=== PATIENT | male | born 1955 | race Caucasian/White ===

== ENCOUNTER 2017-04-13 12:34 | Inpatient (IN) | payer MEDICARE ==
[2017-04-13] VITALS (7 sets, daily range): BP systolic 125–166; BP diastolic 76–92
[~2017-04-13] VITALS: Ht 185.4 cm; Wt 96.3 kg
--- NOTE | ~2017-04-13 | ST ---
[place], [place] EXERCISE STRESS TEST REPORT NAME: DANK MCDONNELL UNIT #: [id number] ROOM: 511 DOCTOR: PEREZ LANE MD BIRTHDATE: [birth year] DOS: 04/14/2017 EXERCISE NUCLEAR STRESS TEST INDICATIONS: Precordial chest pain, history of coronary artery disease with previous bypass surgery. PROCEDURE: The patient walked on a full Killian protocol for 7 minutes 35 seconds and achieved a maximum heart rate of 147, which represented 93% of his maximum predicted heart at a workload of 10 mets. His resting heart rate of 74 ezra to 147. The resting blood pressure 128/70, ezra to 200/58. He did not recreate his chest pain with exercise. He did develop up to 1.5 mm of flat to downsloping ST segment depression in the inferior and lateral leads. EKG changes persisted over 5 minutes in the recovery. One minute prior to completion of exercise protocol, the patient was given radionuclide intravenously. IMPRESSION: 1. Good exercise capacity without chest pain. 2. Abnormal EKG changes with ST segment depression in the inferior and lateral leads. The Bella treadmill score was 0 consistent with an intermediate risk of future cardiac events. 3. Radionuclide injected. Please see the separate imaging report for further details of the patient's stress test results. PEREZ LANE MD CM:STRESS:EXERCISE STRESS TEST REPORT [id number] MD
[~2017-04-13 12:34] MED LIST: ASPIRIN81 M1 PO; COLACE100 MG PO; FISH OIL500 M1 PO; KEFLEX500 MG PO; LIPITOR40 MG PO; LISINOPRIL10 M1 PO; LISINOPRIL10 MG PO; LISINOPRIL20 MG PO; LOVASTATIN20 MG PO; Lopressor25 MG PO; METFORMIN ER500 MG PO; METFORMIN500 MG PO; NAPROSYN500 MG PO; PLAVIX75 MG PO; VICO75300 PO; VICODIN ES 7501 TAB PO; [UNRECOGNIZED DRUG - REMARK]
[2017-04-13 12:57] LABS: BASO % 0.4 % (0.0-1.0); EOS # 0.3 10*3/uL (0.0-0.4); EOS % 4.5 % (1.0-4.0); HEMATOCRIT 44.6 % (42.0-52.0); HEMOGLOBIN 15.4 g/dl (14.0-18.0); LYMPH # 1.8 10*3/uL (1.3-4.4); LYMPH % 25.7 % (27.0-41.0); MEAN CELL VOLUME 85.3 fl (80.0-94.0); MEAN CORPUSCULAR HGB 29.4 pg (27.0-31.0); MEAN CORPUSCULAR HGB CONC 34.5 g/dl (33.0-37.0); MEAN PLATELET VOLUME 9.9 fl (9.6-12.3); MONO # 0.5 10*3/uL (0.1-1.0); MONO % 7.3 % (3.0-9.0); NEUT # 4.4 10*3/uL (2.3-7.9); PLATELET COUNT AUTOMATED 253 10*3/uL (130-400); RED BLOOD COUNT 5.23 10*6/uL (4.50-5.90); RED CELL DISTRI WIDTH 13.1 % (0-14.5); WHITE BLOOD COUNT 7.1 10*3/uL (4.8-10.8)
[2017-04-13 13:14] LABS: ALBUMIN 3.7 gm/dl (3.1-4.5); ALKALINE PHOSPHATASE 85 U/L (45-117); BUN 17 mg/dl (7-24); CHLORIDE 103 mmol/L (98-107); CREATININE 1.27 mg/dL (0.70-1.30); MAGNESIUM 1.7 mg/dL (1.5-2.1); POTASSIUM 3.8 mmol/L (3.5-5.1); SGOT/AST 18 IU/L (3-35); SGPT/ALT 39 U/L (12-78); SODIUM 137 mmol/L (136-145); TOTAL PROTEIN 7.8 gm/dL (6.4-8.2)
[2017-04-13 13:16] LABS: TROPONIN I < 0.015 ng/ml (<0.045)
--- NOTE | 2017-04-13 13:19 | NUR ---
PATIENT IS ALERT AND ORIETNED X3, SKIN IS PINK, WARM, AND DRY, RESPIRATIONS ARE EASY AND NONLABORED, PATIENT IS RESTING IN BED WITH FAMILY PRESENT IN THE ROOM, CALL LIGHT IN REACH OF THE PATIENT, CONTINUING TO MONITOR THE PATIENT. CHRIS JONES
[2017-04-13 13:23] LABS: ACT PARTIAL THROMBO TIME 22.5 SECONDS (20.8-31.5)
[2017-04-13] MEDS ORDERED: GLIPIZIDE10 M2 PO (14:07)
--- NOTE | 2017-04-13 14:08 | NUR ---
HOME MEDS VERIFIED WITH EUGENIE AT [facility]
--- NOTE | 2017-04-13 14:14 | NUR ---
PATIENT TAKEN TO THE FLOOR AND PALCED IN ROOM 511-2, PLACED ON THE MONITOR AND CARE TRANSFERRED TO MABLE BRAXTON RN. CHRIS JONES
--- NOTE | 2017-04-13 14:15 | NUR ---
A 61, admitted to , under the services of NILS De Guzman DO with a diagnosis of CHEST PAIN. Chief complaint is CHEST PAIN. Patient arrived via CART WITH RN from ER. Monitor applied. Initial assessment completed. Vital signs taken and recorded. NILS DE GUZMAN DO notified of admission to the unit. Orders received. See assessment for past medical history, medications and allergies. Patient and/or family oriented to unit. [facility] visitation policy reviewed. Clothing/patient valuable form completed. MAGGI BRAXTON
--- NOTE | 2017-04-13 15:08 | NUR ---
A 61, admitted to , under the services of NILS De Guzman DO with a diagnosis of CHEST PAIN. Chief complaint is CHEST PAIN. Patient arrived via OTHER from ER. Monitor applied. Initial assessment completed. Vital signs taken and recorded. NILS DE GUZMAN DO notified of admission to the unit. Orders received. See assessment for past medical history, medications and allergies. Patient and/or family oriented to unit. [facility] visitation policy reviewed. Clothing/patient valuable form completed. MAGGI BRAXTON
--- NOTE | 2017-04-13 15:12 | NUR ---
PT REFUSED FLU SHOT WHEN OFFERED.
--- NOTE | 2017-04-13 17:19 | NUR ---
Patient resting quietly with no c/o discomfort. Respirations easy and regular. Vital signs stable. No overt distress. MAGGI BRAXTON
--- NOTE | 2017-04-13 20:00 | NUR ---
PT AMBULATING TO BR AD NARCISA. PT STATES PAIN IS 1/10 TO LEFT AXILLARY AND DESCRIBES MUSCLE ACHE. DENIES NEED FOR ANY PAIN MEDICATION AT THIS TIME. HRR 70'S. PT ADVISED TO CALL NURSE IF ANY FURTHER/INCREASE IN PAIN. PT AGREEABLE.
--- NOTE | 2017-04-13 22:43 | NUR ---
24 HR chart check completed.
[2017-04-14] VITALS: BP 115/70
[2017-04-14 06:32] LABS: BASO % 0.3 % (0.0-1.0); EOS # 0.3 10*3/uL (0.0-0.4); EOS % 3.7 % (1.0-4.0); HEMATOCRIT 46.9 % (42.0-52.0); HEMOGLOBIN 15.6 g/dl (14.0-18.0); LYMPH # 2.1 10*3/uL (1.3-4.4); LYMPH % 23.7 % (27.0-41.0); MEAN CELL VOLUME 86.1 fl (80.0-94.0); MEAN CORPUSCULAR HGB 28.6 pg (27.0-31.0); MEAN CORPUSCULAR HGB CONC 33.3 g/dl (33.0-37.0); MEAN PLATELET VOLUME 10.2 fl (9.6-12.3); MONO # 0.7 10*3/uL (0.1-1.0); MONO % 7.6 % (3.0-9.0); NEUT # 5.6 10*3/uL (2.3-7.9); NEUT % 64.4 % (47.0-73.0); PLATELET COUNT AUTOMATED 264 10*3/uL (130-400); RED BLOOD COUNT 5.45 10*6/uL (4.50-5.90); RED CELL DISTRI WIDTH 13.2 % (0-14.5); WHITE BLOOD COUNT 8.6 10*3/uL (4.8-10.8)
[2017-04-14 07:06] LABS: ALBUMIN 3.9 gm/dl (3.1-4.5); ALKALINE PHOSPHATASE 81 U/L (45-117); BUN 17 mg/dl (7-24); CHLORIDE 101 mmol/L (98-107); CHOLESTEROL 149 mg/dL (<200); CREATININE 1.24 mg/dL (0.70-1.30); FREE T4 1.11 ng/dl (0.76-1.46); HDL CHOLESTEROL 35 mg/dl (40-60); LDL CHOLESTEROL 67 mg/dL (9-159); MAGNESIUM 1.6 mg/dL (1.5-2.1); PHOSPHOROUS 3.2 mg/dL (2.5-4.9); SGOT/AST 19 IU/L (3-35); SGPT/ALT 41 U/L (12-78); SODIUM 137 mmol/L (136-145); TOTAL PROTEIN 8.1 gm/dL (6.4-8.2); TRIGLYCERIDES 233 mg/dl (<150); VLDL CHOLESTEROL 47 mg/dL (6-40)
[2017-04-14 08:00] VITALS: BP 137/88
--- NOTE | 2017-04-14 08:42 | NUR ---
PT OFF FLOOR VIA TRANSPORT FOR STRESS TEST.
--- NOTE | 2017-04-14 09:00 | NUR ---
case management attempted to visit with patient, patient out of room for testing
--- NOTE | 2017-04-14 10:25 | NUR ---
INFORMED SIGNED CONSENT OBTAINED FOR CGXT WITH DR LANE. RESTING EKG NSR HR 74 BP 128/70 IN SUPINE POSITION, STANDING HR 72 BP 130/84. PT COMPLETED 7:35 OF A JENELLE PROTOCOL WITH PT COMPLETING 1:35 OF STAGE III AT 3.4 MPHE AND A 14% GRADE. PT REAHCED A PEAK HR OF 147 WHICH REPRESENTS 93% OF PREDICTED MAXIMUM AND PEAK BP OF 170/82. NO ARRHTHMIAS NOTED. NON DIAGNOSTIC ST CHANGES. PT IN STABLE CONDITION, AWAITING NUCLEAR IMAGES. LAST RECOVERY HR OF 99 BP 148/80.
[2017-04-14 11:00] VITALS: BP 150/89
--- NOTE | 2017-04-14 11:01 | NUR ---
PT RETURNED FROM STRESS TEST. PT STABLE AT THIS TIME. RESPS EASY ON RA. ASSESSMENT UNCHANGED FROM PREVIOUS. CALL LIGHT IN REACH.
[2017-04-14 12:00] VITALS: BP 150/89
[2017-04-14 16:00] VITALS: BP 116/79
[2017-04-14] MEDS ORDERED: IMDUR SA30 MG PO (16:46)
--- NOTE | 2017-04-14 17:50 | NUR ---
Discharge instructions reviewed with patient/family. Patient receptive and verbalizes understanding. Follow-up care arranged. Written instructions given to patient/family.HEPLOCK REMOVED AND TELEMETRY ACCOUNTED FOR. MAGGI BRAXTON
== END 2017-04-14 17:50 | disposition home or self-care (01) | DRG 392 ==
LOC: ED 12:34 → 5E 13:43 → EDHOLD 13:43 → 5E 04-14 17:50
PROVIDERS: Emergency Medicine; Family Medicine; ADMIT Internal Medicine
PROC: 4A02XM4 Measurement of Cardiac Total Activity, External Approach (ICD-10-PCS; principal; 2017-04-14)
DX: K21.9 Gastro-esophageal reflux disease without esophagitis (principal); E11.65 Type 2 diabetes mellitus with hyperglycemia; I10 Essential (primary) hypertension; I25.718 Atherosclerosis of autologous vein coronary artery bypass graft(s) with other forms of angina pectoris; R07.89 Other chest pain; E78.5 Hyperlipidemia, unspecified; Z79.82 Long term (current) use of aspirin; Z79.899 Other long term (current) drug therapy; Z95.1 Presence of aortocoronary bypass graft; Z72.89 Other problems related to lifestyle; Z82.49 Family history of ischemic heart disease and other diseases of the circulatory system; Z79.84 Long term (current) use of oral hypoglycemic drugs

== ENCOUNTER 2019-08-13 12:43 | Inpatient (IN) | payer MEDICARE ==
[~2019-08-13] VITALS: Ht 182.8 cm; Wt 98.0 kg
[2019-08-13] VITALS (9 sets, daily range): BP systolic 107–166; BP diastolic 69–94
[~2019-08-13 12:43] MED LIST changes: +GLIPIZIDE10 M2 PO; +IMDUR SA30 MG PO
[2019-08-13 13:34] LABS: BASO % 0.4 % (0.0-1.0); EOS # 0.4 10*3/uL (0.0-0.4); EOS % 7.1 % (1.0-4.0); HEMATOCRIT 45.1 % (42.0-52.0); HEMOGLOBIN 15.3 g/dl (14.0-18.0); LYMPH # 1.3 10*3/uL (1.3-4.4); LYMPH % 26.1 % (27.0-41.0); MEAN CELL VOLUME 87.1 fl (80.0-94.0); MEAN CORPUSCULAR HGB 29.5 pg (27.0-31.0); MEAN CORPUSCULAR HGB CONC 33.9 g/dl (33.0-37.0); MEAN PLATELET VOLUME 10.2 fl (9.6-12.3); MONO # 0.6 10*3/uL (0.1-1.0); MONO % 12.5 % (3.0-9.0); NEUT # 2.7 10*3/uL (2.3-7.9); NEUT % 53.7 % (47.0-73.0); PLATELET COUNT AUTOMATED 219 10*3/uL (130-400); RED BLOOD COUNT 5.18 10*6/uL (4.50-5.90); RED CELL DISTRI WIDTH 13.7 % (0-14.5)
[2019-08-13 13:45] LABS: ACT PARTIAL THROMBO TIME 23.6 SECONDS (20.0-32.1)
[2019-08-13 13:50] LABS: ALBUMIN 3.7 gm/dl (3.1-4.5); ALKALINE PHOSPHATASE 71 U/L (45-117); BUN 17 mg/dl (7-24); CHLORIDE 108 mmol/L (98-107); CREATININE 1.36 mg/dL (0.70-1.30); SGOT/AST 21 IU/L (3-35); SGPT/ALT 37 U/L (12-78); SODIUM 139 mmol/L (136-145); TOTAL PROTEIN 6.7 gm/dL (6.4-8.2)
[2019-08-13 13:52] LABS: TROPONIN I < 0.015 ng/ml (<0.045)
--- NOTE | 2019-08-13 16:02 | NUR ---
Chiara at [facility] cardiology notified of consult for pt. Er called and states pt is coming to floor. Notified of reason for consult and that consult is ordered routine.
[2019-08-13] MEDS ORDERED: ZESTRIL20 MG PO (16:11)
[2019-08-13] MEDS ORDERED: IMDUR SA30 MG PO (16:12)
--- NOTE | 2019-08-13 16:30 | NUR ---
Notified Dr. Dial that pt is here in room and med rec is updated.
--- NOTE | 2019-08-13 17:34 | NUR ---
Dr. Dial notified of troponin result of 0.090.
--- NOTE | 2019-08-13 17:38 | NUR ---
Dr. Ramirez notified of second troponin result.
--- NOTE | 2019-08-13 20:29 | NUR ---
ATTEMPTED TO CONTACT CARDIOLOGY, WAITNING ON A CALL BACK
--- NOTE | 2019-08-13 21:20 | NUR ---
SPOKE WITH DR. WILCOX. STATED TO TREAT THE LEFT ARM PAIN ANGINA AND LONG HIS BP TOLERATES THE NITRO PASTE,USE 1/2INCH. X2 DOSES. ALSO ORDER TROPONIN FOR THE MORNING. DR. BILL MADE AWARE.
--- NOTE | 2019-08-13 22:20 | NUR ---
1/2INCH NITRO PASTE PLACED ON PATIENT LEFT SHOULDER
[2019-08-14] VITALS: BP 128/81
[2019-08-14 06:11] LABS: ALBUMIN 3.2 gm/dl (3.1-4.5); BUN 14 mg/dl (7-24); CHLORIDE 109 mmol/L (98-107); CHOLESTEROL 84 mg/dL (<200); CREATININE 1.19 mg/dL (0.70-1.30); SGOT/AST 22 IU/L (3-35); SGPT/ALT 36 U/L (12-78); SODIUM 140 mmol/L (136-145); TOTAL PROTEIN 6.2 gm/dL (6.4-8.2); TRIGLYCERIDES 109 mg/dl (<150); VLDL CHOLESTEROL 22 mg/dL (6-40)
[2019-08-14 06:14] LABS: BASO % 0.5 % (0.0-1.0); EOS # 0.5 10*3/uL (0.0-0.4); EOS % 7.8 % (1.0-4.0); HEMATOCRIT 41.8 % (42.0-52.0); LYMPH # 1.8 10*3/uL (1.3-4.4); LYMPH % 29.3 % (27.0-41.0); MEAN CELL VOLUME 86.9 fl (80.0-94.0); MEAN CORPUSCULAR HGB 29.1 pg (27.0-31.0); MEAN CORPUSCULAR HGB CONC 33.5 g/dl (33.0-37.0); MEAN PLATELET VOLUME 10.3 fl (9.6-12.3); MONO # 0.6 10*3/uL (0.1-1.0); MONO % 10.4 % (3.0-9.0); NEUT # 3.2 10*3/uL (2.3-7.9); NEUT % 51.8 % (47.0-73.0); PLATELET COUNT AUTOMATED 209 10*3/uL (130-400); RED BLOOD COUNT 4.81 10*6/uL (4.50-5.90); RED CELL DISTRI WIDTH 13.6 % (0-14.5); WHITE BLOOD COUNT 6.1 10*3/uL (4.8-10.8)
[2019-08-14 06:18] LABS: ALKALINE PHOSPHATASE 57 U/L (45-117); FREE T4 1.33 ng/dl (0.76-1.46); HDL CHOLESTEROL 28 mg/dl (40-60); LDL CHOLESTEROL 34 mg/dL (9-159); THYROID STIM HORMONE (HS) 0.739 uIU/ml (0.358-4.75)
--- NOTE | 2019-08-14 07:12 | NUR ---
PATIENTS APTT, 40.7. HEPARIN DRIPPED INCRESED BY 2UNITS. NOW RUNNING 14UNITS OR 13.7ML. APTT NOW ORDERED FOR 1300
[2019-08-14 08:00] VITALS: BP 164/93
--- NOTE | 2019-08-14 10:30 | NUR ---
PHYSICAL THERAPY PT SCREEN COMPLETED TODAY AND PATIENT FOUND TO BE UP AD NARCISA AND (I) IN ROOM AND NO PT SERVICES NEEDED. THANK YOU FOR REFERRAL CAMELIA ROLBES PT
[2019-08-14 12:00] VITALS: BP 132/75
[2019-08-14 16:00] VITALS: BP 148/75
[2019-08-14 20:00] VITALS: BP 139/73
[2019-08-15] VITALS: BP 134/89
[2019-08-15 08:00] VITALS: BP 151/92
[2019-08-15 12:00] VITALS: BP 120/82
[2019-08-15 16:00] VITALS: BP 126/77
[2019-08-15 20:00] VITALS: BP 138/81
[2019-08-16] VITALS: BP 116/63
[2019-08-16 08:00] VITALS: BP 138/90
--- NOTE | 2019-08-16 08:40 | NUR ---
INFORMED CONSENT OBTAINED FOR A LEXISCAN STRESS TEST WITH DR. MCCARTHY. RESTING EKG NSR WITH A HT RT OF 85 AND BP OF 126/80. LUNGS SOUNDS CLEAR MAGALIE, WITH A SPO2 OF 100% VIA RA. COMPLETED ONE MINUTE OF A LEXISCAN PROTOCOL RECEIVING LEXISCAN 0.4 MG OVER 10 SECONDS. C/O A "WARM FEELING" AND ABDOMINAL CRAMPING THAT WAS RELIEVED IN RECOVERY. HAD A PEAK HT RT OF 115, WITH A BP OF 130/68. LAST RECOVERY HT RT OF 110, WITH A BP OF 128/74. AWAITING NUCLEAR IMAGING IN STABLE CONDTION.
--- NOTE | 2019-08-16 09:00 | NUR ---
Customer Service Security Officer in to see patient. He is currently no tin his room. He is having a stress done in cardiac rehab. Will follow up at a later time.
[2019-08-16 12:00] VITALS: BP 138/83
--- NOTE | 2019-08-16 12:27 | NUR ---
Rural Electrification Engineer in to talk to patient. Patient states lives at home with his . There are 4-5 steps in the home. Physician: Dr. Herbie Dean [facility] Home health services: none Patient's level of ADLs: INDEPENDENT Patient has working utilities: yes DME: none Follow-up physician's appointment after d/c: will be made by the hospitalist nurse director upon discharge Does patient want to access PORTAL?: no Discharge plan discussed with patient. He lives at home with his . He is independent in his ADLs and ambulation. Discussed home health care services and he denies any home needs at this time. When medically stable he will be discharged to home. He states his will provide transportation on discharge. ZENY ZAMORA
--- NOTE | 2019-08-16 14:38 | NUR ---
PT TO BE TRANSFERRED TO [facility] FOR CARDIAC CATH, NURSE TO NURSE CALLED TO CEDRIC IN THE OUTSOLE CEMENTER MACHINE, PT HAS TO BE THERE BY 0730 08/17/2019
[2019-08-16 16:00] VITALS: BP 103/69
[2019-08-16 20:00] VITALS: BP 117/64
--- NOTE | 2019-08-16 20:00 | NUR ---
RESTING IN BED VISITING. HEPARIN GTT INFUSING ORDERED THROUGH RIGHT ARM WITHOUT DIFFICULTY. PT. INFORMED OF NPO STATUS AT MIDNIGHT FOR HEART CATHERIZATION IN THE MORNING. PT. VERBALIZED UNDERSTANDING. CALL LIGHT WITHIN REACH; VOICES NO C/O PAIN OR DISCOMFORT.
[2019-08-17] VITALS: BP 118/78
--- NOTE | 2019-08-17 | NUR ---
RESTING IN BED WITH EYES CLOSED. HEPARIN GTT INFUSING WITHOUT DIFFICULTY; SITE ASYMPTOMATIC. RESPIRATIONS EASY ON ROOM AIR. CALL LIGHT WITHIN REACH.
--- NOTE | 2019-08-17 02:00 | NUR ---
RESTING IN BED WITH EYES CLOSED; HEPARIN INFUSING. NO DISTRESS NOTED; CALL LIGHT WITHIN REACH.
--- NOTE | 2019-08-17 05:35 | NUR ---
LEFT VIA [place]. STABLE.
== END 2019-08-17 05:47 | disposition short-term general hospital (02) | DRG 280 ==
LOC: ED 12:43 → 4E 14:40 → EDHOLD 14:40 → 4E 15:02
PROVIDERS: Family Medicine; Internal Medicine; ADMIT Emergency Medicine
PROC: 3E073KZ Introduction of Other Diagnostic Substance into Coronary Artery, Percutaneous Approach (ICD-10-PCS; principal; 2019-08-16)
PROC: 4A02XM4 Measurement of Cardiac Total Activity, External Approach (ICD-10-PCS; principal; 2019-08-16)
DX: I21.4 Non-ST elevation (NSTEMI) myocardial infarction (principal); N17.0 Acute kidney failure with tubular necrosis; E44.0 Moderate protein-calorie malnutrition; I10 Essential (primary) hypertension; I25.10 Atherosclerotic heart disease of native coronary artery without angina pectoris; E78.5 Hyperlipidemia, unspecified; K21.9 Gastro-esophageal reflux disease without esophagitis; M79.602 Pain in left arm; D72.821 Monocytosis (symptomatic); E11.65 Type 2 diabetes mellitus with hyperglycemia; E66.9 Obesity, unspecified; M54.31 Sciatica, right side; Z68.29 Body mass index [BMI] 29.0-29.9, adult; Z95.1 Presence of aortocoronary bypass graft; Z82.49 Family history of ischemic heart disease and other diseases of the circulatory system; Z79.82 Long term (current) use of aspirin; Z79.899 Other long term (current) drug therapy

== ENCOUNTER 2019-11-25 15:54 | Emergency (ER) | payer MEDICARE ==
[~2019-11-25] VITALS: Ht 182.8 cm; Wt 90.7 kg
[~2019-11-25 15:54] MED LIST changes: +ZESTRIL20 MG PO
[2019-11-25 16:56] LABS: BASO % 0.3 % (0.0-1.0); EOS # 0.3 10*3/uL (0.0-0.4); EOS % 3.3 % (1.0-4.0); HEMATOCRIT 41.4 % (42.0-52.0); LYMPH # 1.3 10*3/uL (1.3-4.4); LYMPH % 14.3 % (27.0-41.0); MEAN CORPUSCULAR HGB 29.8 pg (27.0-31.0); MEAN CORPUSCULAR HGB CONC 34.3 g/dl (33.0-37.0); MEAN PLATELET VOLUME 9.8 fl (9.6-12.3); MONO # 0.7 10*3/uL (0.1-1.0); MONO % 7.7 % (3.0-9.0); NEUT # 6.5 10*3/uL (2.3-7.9); NEUT % 74.2 % (47.0-73.0); PLATELET COUNT AUTOMATED 256 10*3/uL (130-400); RED BLOOD COUNT 4.76 10*6/uL (4.50-5.90); RED CELL DISTRI WIDTH 13.3 % (0-14.5); WHITE BLOOD COUNT 8.8 10*3/uL (4.8-10.8)
[2019-11-25 17:10] LABS: ALBUMIN 4.3 gm/dl (3.1-4.5); ALKALINE PHOSPHATASE 79 U/L (45-117); BUN 20 mg/dl (7-24); CHLORIDE 105 mmol/L (98-107); POTASSIUM 4.3 mmol/L (3.5-5.1); SGOT/AST 21 IU/L (3-35); SGPT/ALT 30 U/L (12-78); SODIUM 138 mmol/L (136-145); TOTAL PROTEIN 7.6 gm/dL (6.4-8.2)
[2019-11-25 17:20] LABS: INTERNATIONAL NORM RATIO 1.1 (2.0-3.5)
== END 2019-11-25 18:56 | disposition short-term general hospital (02) ==
LOC: ED 15:54
PROVIDERS: Nurse Practitioner Family
DX: I74.3 Embolism and thrombosis of arteries of the lower extremities (principal); E11.9 Type 2 diabetes mellitus without complications; I10 Essential (primary) hypertension; E78.5 Hyperlipidemia, unspecified; I25.2 Old myocardial infarction; Z79.899 Other long term (current) drug therapy; Z79.82 Long term (current) use of aspirin

== ENCOUNTER 2019-12-21 15:22 | Inpatient (IN) | payer MEDICARE ==
[~2019-12-21] VITALS: Ht 182.8 cm; Wt 87.6 kg
[2019-12-21 15:24] VITALS: BP 95/56
[2019-12-21 16:12] LABS: BASO % 0.1 % (0.0-1.0); EOS % 0.4 % (1.0-4.0); HEMATOCRIT 37.2 % (42.0-52.0); LYMPH # 1.2 10*3/uL (1.3-4.4); LYMPH % 12.1 % (27.0-41.0); MEAN CELL VOLUME 87.9 fl (80.0-94.0); MEAN CORPUSCULAR HGB 29.1 pg (27.0-31.0); MEAN CORPUSCULAR HGB CONC 33.1 g/dl (33.0-37.0); MEAN PLATELET VOLUME 9.3 fl (9.6-12.3); MONO # 0.7 10*3/uL (0.1-1.0); MONO % 6.7 % (3.0-9.0); NEUT # 7.8 10*3/uL (2.3-7.9); NEUT % 80.4 % (47.0-73.0); PLATELET COUNT AUTOMATED 421 10*3/uL (130-400); RED BLOOD COUNT 4.23 10*6/uL (4.50-5.90); RED CELL DISTRI WIDTH 13.3 % (0-14.5); WHITE BLOOD COUNT 9.7 10*3/uL (4.8-10.8)
[2019-12-21 16:22] LABS: ACT PARTIAL THROMBO TIME 30.1 SECONDS (20.0-32.1); INTERNATIONAL NORM RATIO 1.1 (2.0-3.5)
[2019-12-21 16:27] LABS: ALBUMIN 3.5 gm/dl (3.1-4.5); ALKALINE PHOSPHATASE 90 U/L (45-117); BUN 75 mg/dl (7-24); CHLORIDE 104 mmol/L (98-107); CREATININE 2.79 mg/dL (0.70-1.30); LIPASE 144 U/L (73-393); POTASSIUM 5.5 mmol/L (3.5-5.1); SGOT/AST 14 IU/L (3-35); SGPT/ALT 39 U/L (12-78); SODIUM 130 mmol/L (136-145); TOTAL PROTEIN 8.1 gm/dL (6.4-8.2)
[2019-12-21 16:28] LABS: TROPONIN I < 0.015 ng/ml (<0.045)
[2019-12-21 17:47] VITALS: BP 91/55
[2019-12-21 18:20] VITALS: BP 103/59
--- NOTE | 2019-12-21 18:20 | NUR ---
A 64, admitted to , under the services of JILL Nieves DO with a diagnosis of ARF HYPOTENSION DEHYDRATION. Chief complaint is PAIN. Patient arrived via stretcher from ER. Monitor applied. Initial assessment completed. Vital signs taken and recorded. JILL NIEVES DO notified of admission to the unit. Orders received. See assessment for past medical history, medications and allergies. Patient and/or family oriented to unit. [facility]. Clothing/patient valuable form completed. LEFT FOOT WOUNDS WERE MEASURED AND PICTURE WAS TAKEN. 5 TOTAL WOUNDS, LEFT FOOT IS TENDER TO TOUCH. PT ALERT AND ORIENTED. TERRIE URENA
[2019-12-21] MEDS ORDERED: PLAVIX75 M1 PO (19:53)
[2019-12-21] MEDS ORDERED: Lovenox80 MG/0.8 SC (19:53)
[2019-12-21] MEDS ORDERED: GLUCOPHAGE1000 MG PO (19:54)
--- NOTE | 2019-12-21 19:54 | NUR ---
CALLED PT'S TO VERIFY HIS HOME MEDICATIONS.
[2019-12-21] MEDS ORDERED: Percocet 325 MG1 TAB PO (19:56)
--- NOTE | 2019-12-21 19:57 | NUR ---
CALLED DR. PULIDO AND NOTIFIED HER THAT PT'S MED REQ WAS UP TO DATE AND VERIFIED WITH HIS .
--- NOTE | 2019-12-21 19:59 | NUR ---
CALLED DR. VALENTINE AND SPOKE WITH THE PODIATRY RESIDENT. PER PODIATRY RESIDENT SHE ALREADY GOT TO SEE THE PATIENT IN THE ER. CONSULT COMPLETED.
[2019-12-21 20:00] VITALS: BP 104/63
[2019-12-22] VITALS: BP 105/55
[2019-12-22 01:46] LABS: BILIRUBIN NEGATIVE (NEGATIVE); BLOOD NEGATIVE (NEGATIVE); CLARITY SL CLOUDY (CLEAR); COLOR YELLOW (YELLOW); GLUCOSE NEGATIVE (NEGATIVE); KETONE NEGATIVE (NEGATIVE); NITRITE NEGATIVE (NEGATIVE); SPECIFIC GRAVITY 1.025 (1.005-1.030); UROBILINOGEN 0.2 E.U./dl (0.2-1.0)
[2019-12-22 01:47] LABS: LEUKO ESTERASE NEGATIVE (NEGATIVE)
[2019-12-22 02:04] LABS: URIC ACID CRYSTALS 1+
[2019-12-22 02:05] LABS: BACTERIA TRACE; WBC 0-2 wbc/hpf (0-5)
--- NOTE | 2019-12-22 06:11 | NUR ---
DANK MCDONNELL [id number] Please refer to the physician's history and physical for past medical history, comorbid conditions, and allergies. Diagnosis: ARF HYPOTENSION DEHYDRATION Uriel Score: 20,LOW OR NO RISK WOUND DESCRIPTIONS: Wound Number: 1 Location of the wound: left 2nd toe Thickness: Full Size: 4.5cm x 5.5cm x <0.1cm Tunneling: none Undermining: none Sinus Tract: none Presence of Exudate: none Amount: None Color: Black, purple, red and yellow Odor: None Periwound Skin Appearance: Normal Wound edges: closed Pain (associated with wound): tender at time of assessment How does patient state this happened? pt states this started 3 or 4 weeks ago when it started hurting realy bad and was unable to walk. He stated he followed with Dr. Corona who did procedures and then sent him to [facility] where he just had procedures done 5 days ago. [facility] wanted patient to follow up with podiatry and return to [facility] for follow up in 5 days. Wound Number: 2 Location of the wound: left 3rd toe Thickness: Full Size: 4.5cm x 5.5cm x <0.1cm Tunneling: none Undermining: none Sinus Tract: none Presence of Exudate: none Amount: None Color: Black, purple, red and yellow Odor: None Periwound Skin Appearance: Normal Wound edges: closed Pain (associated with wound): tender at time of assessment How does patient state this happened? pt states this started 3 or 4 weeks ago when it started hurting realy bad and was unable to walk. He stated he followed with Dr. Corona who did procedures and then sent him to [facility] where he just had procedures done 5 days ago. [facility] wanted patient to follow up with podiatry and return to [facility] for follow up in 5 days. Wound Number: 3 Location of the wound: left great toe top Thickness: Full Size: 0.9cm x 0.8cm x <0.1cm Tunneling: none Undermining: none Sinus Tract: none Presence of Exudate: none Amount: None Color: Brown, red Odor: None Periwound Skin Appearance: Normal Wound edges: closed Pain (associated with wound): tender at time of assessment How does patient state this happened? pt states this started 3 or 4 weeks ago when it started hurting realy bad and was unable to walk. He stated he followed with Dr. Corona who did procedures and then sent him to [facility] where he just had procedures done 5 days ago. [facility] wanted patient to follow up with podiatry and return to [facility] for follow up in 5 days. Wound Number: 4 Location of the wound: left great toe medial aspect Thickness: Full Size: 2.2cm x 1.0cm x <0.1cm Tunneling: none Undermining: none Sinus Tract: none Presence of Exudate: none Amount: None Color: Black, purple and red Odor: None Periwound Skin Appearance: Normal Wound edges: closed Pain (associated with wound): tender at time of assessment How does patient state this happened? pt states this started 3 or 4 weeks ago when it started hurting realy bad and was unable to walk. He stated he followed with Dr. Corona who did procedures and then sent him to [facility] where he just had procedures done 5 days ago. [facility] wanted patient to follow up with podiatry and return to [facility] for follow up in 5 days. Wound Number: 5 Location of the wound: left great toe plantar foot Thickness: Full Size: 2.2cm x 1.8cm x <0.1cm Tunneling: none Undermining: none Sinus Tract: none Presence of Exudate: none Amount: None Color: Black, purple and red Odor: None Periwound Skin Appearance: Normal Wound edges: closed Pain (associated with wound): tender at time of assessment How does patient state this happened? pt states this started 3 or 4 weeks ago when it started hurting realy bad and was unable to walk. He stated he followed with Dr. Corona who did procedures and then sent him to [facility] where he just had procedures done 5 days ago. [facility] wanted patient to follow up with Wound Number: 6 Location of the wound: left 4th tip of toe Thickness: Full Size: 0.4cm x 0.5cm x <0.1cm Tunneling: none Undermining: none Sinus Tract: none Presence of Exudate: none Amount: None Color: Purple and red Odor: None Periwound Skin Appearance: Normal Wound edges: closed Pain (associated with wound): tender at time of assessment How does patient state this happened? pt states this started 3 or 4 weeks ago when it started hurting realy bad and was unable to walk. He stated he followed with Dr. Corona who did procedures and then sent him to [facility] where he just had procedures done 5 days ago. [facility] wanted patient to follow up with podiatry and return to [facility] for follow up in 5 days. podiatry and return to [facility] for follow up in 5 days. Wound Number: 7 Location of the wound: left 4th toe plantar aspect Thickness: Full Size: 0.4cm x 0.8cm x <0.1cm Tunneling: none Undermining: none Sinus Tract: none Presence of Exudate: none Amount: None Color: Purple, and dark red Odor: None Periwound Skin Appearance: Normal Wound edges: closed Pain (associated with wound): tender at time of assessment How does patient state this happened? pt states this started 3 or 4 weeks ago when it started hurting realy bad and was unable to walk. He stated he followed with Dr. Corona who did procedures and then sent him to [facility] where he just had procedures done 5 days ago. [facility] wanted patient to follow up with podiatry and return to [facility] for follow up in 5 days. Surface the patient is resting on: Isoflex SKIN PREVENTION RECOMMENDATION: 1. Pressure redistribution support surface as appropriate 2. Elevate heels 3. Remove boots/TEDS every shift and reapply 4. Head of bed 30 degrees as tolerated 5. Assess nutrition and hydration 6. Manage moisture 7. Avoid the use of containment devices while in bed 8. Use absorptive products on surfaces limit layers of linens on bed 9. Turn and reposition every 1-2 hours in bed and every 1 hour in chair as tolerated 10. Weight shifts every 15 minutes while up in chair 11. Offloading with pillows or device to keep heels elevated off bed 12. Monitor skin at least every shift 13. Inspect under medical devices twice a day WOUND TREATMENT RECOMMENDATIONS: Podiatry is already on consult await orders from podiatry since they are following patient. Cleanse left great toe, left 2nd toe, left 3rd toe and left 4th with nss and apply betadine and cover with dsd daily and prn for soiling
[2019-12-22 06:32] LABS: BASO % 0.2 % (0.0-1.0); EOS % 0.6 % (1.0-4.0); LYMPH # 1.6 10*3/uL (1.3-4.4); LYMPH % 24.7 % (27.0-41.0); MEAN CELL VOLUME 88.5 fl (80.0-94.0); MEAN CORPUSCULAR HGB CONC 33.9 g/dl (33.0-37.0); MEAN PLATELET VOLUME 9.4 fl (9.6-12.3); MONO # 0.6 10*3/uL (0.1-1.0); MONO % 8.6 % (3.0-9.0); NEUT # 4.2 10*3/uL (2.3-7.9); NEUT % 65.6 % (47.0-73.0); PLATELET COUNT AUTOMATED 332 10*3/uL (130-400); RED BLOOD COUNT 3.73 10*6/uL (4.50-5.90); RED CELL DISTRI WIDTH 13.4 % (0-14.5); WHITE BLOOD COUNT 6.4 10*3/uL (4.8-10.8)
--- NOTE | 2019-12-22 06:36 | NUR ---
Patient is requesting to not apply dressing at this time since podiatry will see later today and is having to much discomfort
[2019-12-22 06:48] LABS: CREATININE 2.45 mg/dL (0.70-1.30); POTASSIUM 5.3 mmol/L (3.5-5.1)
--- NOTE | 2019-12-22 07:47 | NUR ---
Spoke with Dr. Salinas regarding wound care recommendations and she stated she will put them in today.
--- NOTE | 2019-12-22 07:48 | NUR ---
PHYSICAL THERAPY Screen and PT eval received will follow thank you Lucy Damon PT
[2019-12-22 08:00] VITALS: BP 102/56
--- NOTE | 2019-12-22 08:51 | NUR ---
MEDICATED WITH IV MORPHINE ORDERED PER PT REQUEST FOR C/O PAIN TO LEFT TOES/FOOT RATED 8/10. PT REFUSED PO PAIN MEDS D/T NAUSEA.
--- NOTE | 2019-12-22 09:00 | NUR ---
Swatch Cutter in to talk to patient. Patient states lives at home with his . There are 12 scattered steps in the home. Physician: Dr. Herbie Dean Pharmacy: [facility] Home health services: none Patient's level of ADLs: INDEPENDENT Patient has working utilities: yes DME: walker Follow-up physician's appointment after d/c: will be made by the hospitalist nurse director upon discharge Does patient want to access PORTAL?: no Discharge plan discussed with patient and his who is at his bedside. He lives at home with his . He is independent in his ADLs and ambulates with a walker. Discussed home health care services and he denies any home needs at this time. When medically stable he will be discharged to home. He states his will provide transportation on discharge. ZENY ZAMORA
--- NOTE | 2019-12-22 09:00 | NUR ---
MEDICATION EFFECTIVE FOR PAIN.
--- NOTE | 2019-12-22 10:00 | NUR ---
DR CAMPBELL NOTIFIES OF NEED TO HOLD BP MEDS D/T ACUTE HYPOTENSION.
--- NOTE | 2019-12-22 11:00 | NUR ---
OT NOTE Occupational therapy order received and chart reviewed. Attempted to see patient this AM however still awaiting results for arterial/venous studies for B/L LEs. OTR and PT spoke with the this morning and PT about having a LLE cam boot issued by [facility] following his recent surgery and discharge home. Cam boot is at his home at this time. Per patient, he is WBAT with the CAM boot OOB. The stated she will bring the boot in, updated nursing, and updated podiatry. Will follow up with patient once boot is obtained and tests cleared. Thank you. Marcella Aldana, OTR/L
--- NOTE | 2019-12-22 11:05 | NUR ---
PHYSICAL THERAPY Leonardo received chart reviewed attempted to see pt however awaiting results arterial/doppler studies for BLE. Also with futher discussion with /pt he has a CAM boot he was issued for LLE after surgery/recent D/C from [facility] which is not here. Per pt to wear when OOB and allowed WBAT. Spoke from podiatry regarding boot and would rather have pt continue to wear CAM vs post op shoe. Spoke with who will bring boot in and also updated nursing. Will follow once tests clear and boot obtained for LLE. Lucy Damon PT
[2019-12-22 12:00] VITALS: BP 110/73
[2019-12-22 16:00] VITALS: BP 119/66
--- NOTE | 2019-12-22 17:00 | NUR ---
Patient resting quietly with no c/o discomfort. Respirations easy and regular. Vital signs stable. No overt distress. LENCHO PEREYRA
[2019-12-22 20:00] VITALS: BP 105/65
[2019-12-23] VITALS: BP 130/81
--- NOTE | 2019-12-23 03:53 | NUR ---
24 HR chart check completed.
[2019-12-23 06:24] LABS: BASO % 0.3 % (0.0-1.0); EOS # 0.1 10*3/uL (0.0-0.4); EOS % 1.4 % (1.0-4.0); HEMATOCRIT 33.8 % (42.0-52.0); LYMPH # 1.6 10*3/uL (1.3-4.4); LYMPH % 25.5 % (27.0-41.0); MEAN CELL VOLUME 88.3 fl (80.0-94.0); MEAN CORPUSCULAR HGB CONC 32.8 g/dl (33.0-37.0); MEAN PLATELET VOLUME 9.9 fl (9.6-12.3); MONO # 0.7 10*3/uL (0.1-1.0); MONO % 10.3 % (3.0-9.0); NEUT # 3.9 10*3/uL (2.3-7.9); NEUT % 62.2 % (47.0-73.0); PLATELET COUNT AUTOMATED 321 10*3/uL (130-400); RED BLOOD COUNT 3.83 10*6/uL (4.50-5.90); RED CELL DISTRI WIDTH 13.3 % (0-14.5); WHITE BLOOD COUNT 6.3 10*3/uL (4.8-10.8)
[2019-12-23 06:54] LABS: CREATININE 2.06 mg/dL (0.70-1.30); POTASSIUM 4.7 mmol/L (3.5-5.1)
[2019-12-23 08:00] VITALS: BP 128/66
--- NOTE | 2019-12-23 08:00 | NUR ---
Patient resting quietly with no c/o discomfort. Respirations easy and regular. Vital signs stable. No overt distress. LENCHO PEREYRA
[2019-12-23 12:00] VITALS: BP 124/67
--- NOTE | 2019-12-23 13:34 | NUR ---
Patient resting quietly with no c/o discomfort. Respirations easy and regular. Vital signs stable. No overt distress. LENCHO PEREYRA
[2019-12-23 16:00] VITALS: BP 114/66
[2019-12-23 20:00] VITALS: BP 113/63
[2019-12-24] VITALS: BP 137/73
--- NOTE | 2019-12-24 01:21 | NUR ---
TYLENOL GIVEN FOR PAIN RATED A 7 OUT 0F 10 TO THE LEFT FOOT
--- NOTE | 2019-12-24 02:00 | NUR ---
PATIENT SLEEPING COMFORTABLY
[2019-12-24 06:53] LABS: BASO % 0.4 % (0.0-1.0); EOS # 0.1 10*3/uL (0.0-0.4); EOS % 1.8 % (1.0-4.0); LYMPH # 1.5 10*3/uL (1.3-4.4); LYMPH % 27.1 % (27.0-41.0); MEAN CELL VOLUME 89.4 fl (80.0-94.0); MEAN CORPUSCULAR HGB 29.3 pg (27.0-31.0); MEAN CORPUSCULAR HGB CONC 32.8 g/dl (33.0-37.0); MEAN PLATELET VOLUME 10.2 fl (9.6-12.3); MONO # 0.5 10*3/uL (0.1-1.0); MONO % 9.6 % (3.0-9.0); NEUT # 3.4 10*3/uL (2.3-7.9); NEUT % 60.7 % (47.0-73.0); PLATELET COUNT AUTOMATED 282 10*3/uL (130-400); RED BLOOD COUNT 3.58 10*6/uL (4.50-5.90); RED CELL DISTRI WIDTH 13.2 % (0-14.5); WHITE BLOOD COUNT 5.7 10*3/uL (4.8-10.8)
[2019-12-24 07:33] LABS: CREATININE 1.84 mg/dL (0.70-1.30); POTASSIUM 4.5 mmol/L (3.5-5.1)
--- NOTE | 2019-12-24 07:35 | NUR ---
Shift chart check completed.
[2019-12-24 08:00] VITALS: BP 134/75
--- NOTE | 2019-12-24 08:30 | NUR ---
PT RESTING IN BED. VOICES NO CONCERNS AT THIS TIME. RESPS EASY AND NON LABORED. NO S/S OF DISTRESS NOTED.VSS. FRANK GUERRERO UPDATED. CALL LIGHT WITHIN REACH. +PP. SIENNA C/D/I.
--- NOTE | 2019-12-24 09:20 | NUR ---
PHYSICAL THERAPY Attempted to see pt at the bedside states he has been getting up with his walker using his boot. Currently dressing to L foot is partially unwrapped and needs to be rewrapped prior to donning boot. Per nsg/pt podiatry doing dressing changes,will follow at a later date once dressing rewrapped. Lucy Damon PT
--- NOTE | 2019-12-24 09:30 | NUR ---
Plating Tank Operator in to see patient. No new needs or request at this time. He denies any home needs. When medically stable he will be discharged to home.
--- NOTE | 2019-12-24 09:52 | NUR ---
OT NOTE Attempted to see pt at the bedside states he has been getting up with his walker using his boot. Currently dressing to L foot is partially unwrapped and needs to be rewrapped prior to donning boot. Per nsg/pt podiatry doing dressing changes, will follow at a later date once dressing rewrapped. Marcella Aldana, OTR/L
--- NOTE | 2019-12-24 10:28 | NUR ---
MESSAGE LEFT WITH DR ORTIZ OFFICE REGARDING NEW CONSULT
[2019-12-24 12:00] VITALS: BP 124/73
--- NOTE | 2019-12-24 12:30 | NUR ---
Occupational Therapy evaluation completed on five with full evaluation to follow. Recommend occupational therapy per plan of care and home with HH and continued assist from family upon discharge. Thank you for this referral. Marcella Aldana OTR/L
--- NOTE | 2019-12-24 12:30 | NUR ---
PHYSICAL THERAPY Physical Therapy evaluation completed on 5th floor with full evaluation to follow. Recommend physical therapy per plan of care and home with home health upon discharge if cont to progress well. Thank you for this referral. Lucy Damon PT
[2019-12-24 16:00] VITALS: BP 106/60
--- NOTE | 2019-12-24 18:03 | NUR ---
PT RESTING IN BED. RESPS EASY AND NON LABORED. NO S/S OF DISTRESS NOTED. VSS. CALL LIGHT WITHIN REACH
[2019-12-24 20:00] VITALS: BP 137/70
[2019-12-25] VITALS: BP 122/67
[2019-12-25 07:00] LABS: CREATININE 1.72 mg/dL (0.70-1.30); POTASSIUM 4.3 mmol/L (3.5-5.1)
[2019-12-25 08:00] VITALS: BP 150/84
[2019-12-25 12:00] VITALS: BP 131/80
[2019-12-25 16:00] VITALS: BP 136/84
--- NOTE | 2019-12-25 19:00 | NUR ---
ASSUMED CARE FOR THIS PT AT THIS TIME. PT C/O MILD PAIN TO LT FOOT BUT REFUSING ANY PAIN MED. DRSG TO LT FOOT DRY/INTACT. CALL LIGHT IN REACH.
[2019-12-25 20:00] VITALS: BP 151/79
[2019-12-26] VITALS: BP 160/83
[2019-12-26 06:25] LABS: BASO % 0.5 % (0.0-1.0); EOS # 0.2 10*3/uL (0.0-0.4); EOS % 2.8 % (1.0-4.0); HEMATOCRIT 30.2 % (42.0-52.0); LYMPH # 1.7 10*3/uL (1.3-4.4); LYMPH % 27.5 % (27.0-41.0); MEAN CELL VOLUME 89.3 fl (80.0-94.0); MEAN CORPUSCULAR HGB 29.3 pg (27.0-31.0); MEAN CORPUSCULAR HGB CONC 32.8 g/dl (33.0-37.0); MEAN PLATELET VOLUME 10.3 fl (9.6-12.3); MONO # 0.5 10*3/uL (0.1-1.0); MONO % 8.2 % (3.0-9.0); NEUT # 3.8 10*3/uL (2.3-7.9); NEUT % 60.7 % (47.0-73.0); PLATELET COUNT AUTOMATED 255 10*3/uL (130-400); RED BLOOD COUNT 3.38 10*6/uL (4.50-5.90); RED CELL DISTRI WIDTH 13.5 % (0-14.5); WHITE BLOOD COUNT 6.3 10*3/uL (4.8-10.8)
[2019-12-26 08:00] VITALS: BP 136/52
--- NOTE | 2019-12-26 08:00 | NUR ---
PT SITTING UP IN BED. AWAKE, ALERT AND ORIENTED. NO STATED COMPLAINTS. DENIES PAIN AT THIS TIME. RESPIRATIONS ARE EASY AND REGULAR. NO SOB NOTED ON ROOM AIR. BED IN LOWEST LOCKED POSITION AND CALL LIGHT WITHIN REACH. WILL CONTINUE TO MONITOR.
--- NOTE | 2019-12-26 10:00 | NUR ---
IN ROOM TO PASS MEDS. PT STATES HE IS HAVING PAIN IN FOOT. PT RATES THIS PAIN AT A 2 OUT OF 10 ON THE PAIN SCALE. REFUSES ANY PAIN MEDICATIONS. SUHAS SHANKS IN TO ROOM AT THIS TIME. INSTRUCTED ME TO JEREMY LARGE BRUISED AREA TO L ABDOMEN. AREA MARKED WITH BLACK MARKER TO ALLOW ANY ADVANCEMENT IN THE BRUISE. PT STATES THERE IS NO PAIN ASSOCIATED WITH BRUISE. BED IN LOWEST LOCKED POSITION, CALL LIGHT WITHIN REACH.
[2019-12-26 12:00] VITALS: BP 111/63
[2019-12-26 16:00] VITALS: BP 126/72
--- NOTE | 2019-12-26 16:30 | NUR ---
PT'S BLOOD SUGAR IS 72. NO STATED COMPLAINTS. DENIES FEELING SWEATY OR SHAKY. ORANGE JUICE AND JARROD CRACKERS PROVIDED. WILL CONTINUE TO MONITOR.
[2019-12-26 20:00] VITALS: BP 122/73
--- NOTE | 2019-12-26 22:10 | NUR ---
TYLENOL PROVIDED PER PT'S C/O PAIN TO LT FOOT. STATES IT IS INTERMITTENT. CALL LIGHT IN REACH.
--- NOTE | 2019-12-26 23:00 | NUR ---
PATIENT RESTING ON LT SIDE; APPEARS IN NO PAIN. TYLENOL EFFECTIVE.
[2019-12-27] VITALS: BP 133/77
[2019-12-27 07:02] LABS: BASO % 0.3 % (0.0-1.0); EOS # 0.2 10*3/uL (0.0-0.4); EOS % 2.9 % (1.0-4.0); HEMATOCRIT 30.7 % (42.0-52.0); LYMPH # 1.7 10*3/uL (1.3-4.4); LYMPH % 24.2 % (27.0-41.0); MEAN CORPUSCULAR HGB 28.9 pg (27.0-31.0); MEAN CORPUSCULAR HGB CONC 32.9 g/dl (33.0-37.0); MONO # 0.5 10*3/uL (0.1-1.0); NEUT # 4.5 10*3/uL (2.3-7.9); NEUT % 65.3 % (47.0-73.0); PLATELET COUNT AUTOMATED 257 10*3/uL (130-400); RED BLOOD COUNT 3.49 10*6/uL (4.50-5.90); RED CELL DISTRI WIDTH 13.6 % (0-14.5); WHITE BLOOD COUNT 6.8 10*3/uL (4.8-10.8)
[2019-12-27 07:30] LABS: CREATININE 1.63 mg/dL (0.70-1.30); POTASSIUM 4.2 mmol/L (3.5-5.1); TOTAL PROTEIN 6.5 gm/dL (6.4-8.2)
[2019-12-27 08:00] VITALS: BP 168/88
--- NOTE | 2019-12-27 08:20 | NUR ---
PHYSICAL THERAPY Patient seen this am 1;1 for therapy visit and was sitting up on EOB upon therapist arrival. Patient identified by name / and was very pleasant this morning. Patient presented with continuos IV treatment, L LE gauze wrap and remains WBAT with use of CAM boot. Patient needed therapist assist to Nitish CAM boot prior to completing sit to stand transfer, CGA x 1, use of wh walker standing support. Patient ambulated 10'x 1 to bathroom, then additional 40'x 1 demonstrating slow, "step to" gait pattern. Patient reports no c/o's pain this session and returned to EOB sit with only mild fatigue. Patient was also very cautious during all 90/180 turns and remained EOB sit with call light, tray table and cell phone. Will continue per POC as tolerated, total treatment time 17 minutes. Jamshid Meyer, CITY SOLICITOR
--- NOTE | 2019-12-27 08:50 | NUR ---
OT N0TE Pt was seen this A.M. 1:1 for 16 minute OT session. Upon arrival pt was supine in bed. Pt identified by name and and had complaints of "1-2/10 L foot pain". Pt transferred supine to sit EOB with supervision and was able to verbalize weight bearing precautions with 100% accuracy. While sitting EOB pt's LLE cam boot was donned with modA and provided education on how to alan, pt verbalized understanding. Also while sitting EOB pt was able to alan R sock MO. Sit to stand completed from bed level with SBA and use of w/w for UE support. Functional mobility was then completed from the EOB to the bathroom with SBA and use of w/w there he transferred on/off standard commode with SBA. Functional mobility completed back to the EOB. While standing at the EOB challenged pt's dynamic standing balance while weight shifting, crossing midline, and reaching over all planes. Pt was able to maintain G- standing balance throughout. Pt was left sitting upright on the EOB with call light in reach and tray table in place. Continue with rec D/C plan to home with home health. RENALDO Jones/Jose Armando
--- NOTE | 2019-12-27 11:15 | NUR ---
PODIATRY WAS IN TO ROOM TO CHANGE DRESSING TO PT'S FOOT. PT DOES NOT WANT DRESSING TAKEN OFF AGAIN TO OBTAIN DISCHARGE WOUND PICTURES.
--- NOTE | 2019-12-27 11:15 | NUR ---
Discharge instructions reviewed with patient/family. Patient receptive and verbalizes understanding. Follow-up care arranged. Written instructions given to patient/family. MINDY ESTEBAN
--- NOTE | 2019-12-28 07:47 | NUR ---
PHYSICAL THERAPY CO-SIGN I approve of the Physical Therapy notes written above. ZENY BELLA PT,DPT
--- NOTE | 2019-12-28 07:48 | NUR ---
OCCUPATIONAL THERAPY CO-SIGN I approve of the Occupational Therapy notes written above. Luz Calhoun OTR/L
== END 2019-12-27 11:15 | disposition home or self-care (01) | DRG 683 ==
LOC: ED 15:22 → 5E 17:03 → EDHOLD 17:03 → 5E 17:35
PROVIDERS: Emergency Medicine; Family Medicine; Internal Medicine; Registered Nurse; ADMIT Internal Medicine
DX: N17.0 Acute kidney failure with tubular necrosis (principal); E11.52 Type 2 diabetes mellitus with diabetic peripheral angiopathy with gangrene; I96 Gangrene, not elsewhere classified; E87.1 Hypo-osmolality and hyponatremia; E87.2 Acidosis; E86.0 Dehydration; D64.9 Anemia, unspecified; D47.3 Essential (hemorrhagic) thrombocythemia; R79.1 Abnormal coagulation profile; E87.5 Hyperkalemia; I10 Essential (primary) hypertension; E78.5 Hyperlipidemia, unspecified; K21.9 Gastro-esophageal reflux disease without esophagitis; M54.30 Sciatica, unspecified side; I95.9 Hypotension, unspecified; E87.8 Other disorders of electrolyte and fluid balance, not elsewhere classified; R19.5 Other fecal abnormalities; I25.10 Atherosclerotic heart disease of native coronary artery without angina pectoris; I25.2 Old myocardial infarction; Z95.1 Presence of aortocoronary bypass graft; Z95.5 Presence of coronary angioplasty implant and graft; Z82.49 Family history of ischemic heart disease and other diseases of the circulatory system; Z82.69 Family history of other diseases of the musculoskeletal system and connective tissue; Z79.82 Long term (current) use of aspirin; Z79.899 Other long term (current) drug therapy; Z79.02 Long term (current) use of antithrombotics/antiplatelets; Z79.84 Long term (current) use of oral hypoglycemic drugs

== ENCOUNTER → 2019-12-29 | Outpatient (CLI) | payer MEDICARE ==
[~2019-12-29] MED LIST changes: +GLUCOPHAGE1000 MG PO; +Lovenox80 MG/0.8 SC; +PLAVIX75 M1 PO; +Percocet 325 MG1 TAB PO
[2019-12-29 12:26] LABS: BASO % 0.1 % (0.0-1.0); EOS # 0.1 10*3/uL (0.0-0.4); HEMATOCRIT 34.1 % (42.0-52.0); LYMPH # 1.6 10*3/uL (1.3-4.4); LYMPH % 23.1 % (27.0-41.0); MEAN CELL VOLUME 87.7 fl (80.0-94.0); MEAN CORPUSCULAR HGB CONC 33.1 g/dl (33.0-37.0); MEAN PLATELET VOLUME 10.2 fl (9.6-12.3); MONO # 0.6 10*3/uL (0.1-1.0); NEUT # 4.7 10*3/uL (2.3-7.9); NEUT % 66.5 % (47.0-73.0); PLATELET COUNT AUTOMATED 317 10*3/uL (130-400); RED BLOOD COUNT 3.89 10*6/uL (4.50-5.90); RED CELL DISTRI WIDTH 13.5 % (0-14.5); WHITE BLOOD COUNT 7.1 10*3/uL (4.8-10.8)
[2019-12-29 12:36] LABS: ALBUMIN 3.9 gm/dl (3.1-4.5); CREATININE 1.73 mg/dL (0.70-1.30); POTASSIUM 3.5 mmol/L (3.5-5.1); TOTAL PROTEIN 8.2 gm/dL (6.4-8.2)
== END | disposition home or self-care (01) ==
LOC: LAB 11:37
PROVIDERS: Registered Nurse
DX: N17.8 Other acute kidney failure (principal)

== ENCOUNTER → 2020-01-06 | Outpatient (CLI) | payer MEDICARE ==
[2020-01-06 09:02] LABS: CHOLESTEROL 159 mg/dL (<200); HDL CHOLESTEROL 34 mg/dl (40-60); LDL CHOLESTEROL 71 mg/dL (9-159); SGOT/AST 11 IU/L (3-35); SGPT/ALT 35 U/L (12-78); TRIGLYCERIDES 269 mg/dl (<150); VLDL CHOLESTEROL 54 mg/dL (6-40)
== END | disposition home or self-care (01) ==
LOC: LAB 07:46
PROVIDERS: Internal Medicine Cardiovascular Disease
DX: Z01.818 Encounter for other preprocedural examination (principal); E78.2 Mixed hyperlipidemia; I21.4 Non-ST elevation (NSTEMI) myocardial infarction; I10 Essential (primary) hypertension; Z95.5 Presence of coronary angioplasty implant and graft

== ENCOUNTER → 2020-01-14 | Outpatient (CLI) | payer MEDICARE ==
[~2020-01-14] MED LIST changes: +DOXYCYCLINE100 M3 PO; +FENOFIBRATE145 M1 PO; +TRAMADOL HCL50 MG PO
== END | disposition home or self-care (01) ==
LOC: COVID19 09:45
DX: Z01.818 Encounter for other preprocedural examination (principal); Z11.59 Encounter for screening for other viral diseases

== ENCOUNTER → 2020-01-17 | Outpatient (CLI) | payer MEDICARE ==
[2020-01-17 16:02] LABS: ACT PARTIAL THROMBO TIME 21.2 SECONDS (20.0-32.1)
== END | disposition home or self-care (01) ==
LOC: LAB 15:13
PROVIDERS: Internal Medicine
DX: I96 Gangrene, not elsewhere classified (principal)

== ENCOUNTER → 2020-02-18 | Outpatient (CLI) | payer MEDICARE ==
[2020-02-18 08:10] LABS: CHOLESTEROL 147 mg/dL (<200); HDL CHOLESTEROL 41 mg/dl (40-60); LDL CHOLESTEROL 70 mg/dL (9-159); TRIGLYCERIDES 179 mg/dl (<150); VLDL CHOLESTEROL 36 mg/dL (6-40)
== END | disposition home or self-care (01) ==
LOC: LAB 07:27
PROVIDERS: Internal Medicine Cardiovascular Disease
DX: I25.10 Atherosclerotic heart disease of native coronary artery without angina pectoris (principal); E78.5 Hyperlipidemia, unspecified; Z95.5 Presence of coronary angioplasty implant and graft

== ENCOUNTER → 2020-03-08 | Outpatient (CLI) | payer MEDICARE ==
[2020-03-08 08:26] LABS: INTERNATIONAL NORM RATIO 2.6 (2.0-3.5)
== END | disposition home or self-care (01) ==
LOC: LAB 06:55
PROVIDERS: ATTEND Internal Medicine
DX: Z79.01 Long term (current) use of anticoagulants (principal)

== ENCOUNTER → 2020-08-17 | Outpatient (CLI) | payer MEDICARE | END | disposition home or self-care (01) | LOC: COVID19 14:10 | PROVIDERS: ATTEND Surgery Vascular Surgery | DX: Z01.818 Encounter for other preprocedural examination (principal); Z20.822 Contact with and (suspected) exposure to COVID-19 ==

== ENCOUNTER 2021-03-10 10:27 | Emergency (ER) | payer MEDICARE ==
[~2021-03-10] VITALS: Ht 182.8 cm; Wt 94.3 kg
[2021-03-10 11:00] LABS: BASO % 0.1 % (0.0-1.0); EOS # 0.2 10*3/uL (0.0-0.4); EOS % 2.6 % (1.0-4.0); HEMATOCRIT 36.4 % (42.0-52.0); LYMPH # 1.5 10*3/uL (1.3-4.4); LYMPH % 16.3 % (27.0-41.0); MEAN CELL VOLUME 76.5 fl (80.0-94.0); MEAN CORPUSCULAR HGB 23.5 pg (27.0-31.0); MEAN CORPUSCULAR HGB CONC 30.8 g/dl (33.0-37.0); MEAN PLATELET VOLUME 9.3 fl (9.6-12.3); MONO # 0.7 10*3/uL (0.1-1.0); MONO % 7.5 % (3.0-9.0); NEUT # 6.6 10*3/uL (2.3-7.9); NEUT % 73.2 % (47.0-73.0); PLATELET COUNT AUTOMATED 442 10*3/uL (130-400); RED BLOOD COUNT 4.76 10*6/uL (4.50-5.90); RED CELL DISTRI WIDTH 18.2 % (0-14.5)
[2021-03-10 11:18] LABS: ALBUMIN 3.3 gm/dl (3.1-4.5); ALKALINE PHOSPHATASE 73 U/L (45-117); BUN 20 mg/dl (7-24); CHLORIDE 105 mmol/L (98-107); CREATININE 1.47 mg/dL (0.70-1.30); POTASSIUM 3.8 mmol/L (3.5-5.1); SGOT/AST 10 IU/L (3-35); SGPT/ALT 21 U/L (12-78); SODIUM 136 mmol/L (136-145); TOTAL PROTEIN 8.2 gm/dL (6.4-8.2)
[2021-03-10 11:20] LABS: TROPONIN I < 0.015 ng/ml (<0.045)
== END 2021-03-10 15:07 | disposition home or self-care (01) ==
LOC: ED 10:27
PROVIDERS: Emergency Medicine
DX: M25.512 Pain in left shoulder (principal); M54.2 Cervicalgia; M79.602 Pain in left arm; E11.9 Type 2 diabetes mellitus without complications; I25.10 Atherosclerotic heart disease of native coronary artery without angina pectoris; K21.9 Gastro-esophageal reflux disease without esophagitis; I10 Essential (primary) hypertension; E78.5 Hyperlipidemia, unspecified; Z79.899 Other long term (current) drug therapy; Z79.82 Long term (current) use of aspirin; X58.XXXA Exposure to other specified factors, initial encounter; Y93.89 Activity, other specified; Y92.89 Other specified places as the place of occurrence of the external cause; Y99.8 Other external cause status

== ENCOUNTER → 2021-04-02 | Outpatient (CLI) | payer MEDICARE ==
[2021-04-02 10:43] LABS: CHOLESTEROL 115 mg/dL (<200); LDL CHOLESTEROL 52 mg/dL (9-159); SGOT/AST 20 IU/L (3-35); SGPT/ALT 23 U/L (12-78); TRIGLYCERIDES 119 mg/dl (<150)
== END | disposition home or self-care (01) ==
LOC: LAB 09:30
PROVIDERS: ATTEND Internal Medicine Cardiovascular Disease
DX: I10 Essential (primary) hypertension (principal); E78.2 Mixed hyperlipidemia; I25.10 Atherosclerotic heart disease of native coronary artery without angina pectoris

== ENCOUNTER 2022-02-07 05:23 | Emergency (ER) | payer MEDICARE ==
[~2022-02-07] VITALS: Ht 182.8 cm; Wt 99.8 kg
[2022-02-07 06:40] LABS: BASO % 0.2 % (0.0-1.0); EOS # 0.2 10*3/uL (0.0-0.4); EOS % 2.4 % (1.0-4.0); HEMATOCRIT 41.8 % (42.0-52.0); LYMPH # 0.9 10*3/uL (1.3-4.4); LYMPH % 8.9 % (27.0-41.0); MEAN CELL VOLUME 84.1 fl (80.0-94.0); MEAN CORPUSCULAR HGB 28.2 pg (27.0-31.0); MEAN CORPUSCULAR HGB CONC 33.5 g/dl (33.0-37.0); MEAN PLATELET VOLUME 9.7 fl (9.6-12.3); MONO # 0.8 10*3/uL (0.1-1.0); MONO % 8.2 % (3.0-9.0); NEUT # 7.6 10*3/uL (2.3-7.9); PLATELET COUNT AUTOMATED 285 10*3/uL (130-400); RED BLOOD COUNT 4.97 10*6/uL (4.50-5.90); RED CELL DISTRI WIDTH 13.7 % (0-14.5); WHITE BLOOD COUNT 9.5 10*3/uL (4.8-10.8)
[2022-02-07 06:56] LABS: CREATININE 1.58 mg/dL (0.70-1.30); POTASSIUM 3.8 mmol/L (3.5-5.1); TOTAL PROTEIN 7.8 gm/dL (6.4-8.2)
[2022-02-07] MEDS ORDERED: AMOXICILLIN500 M2 PO (08:22)
== END 2022-02-07 08:40 | disposition home or self-care (01) ==
LOC: ED 05:23
PROVIDERS: Emergency Medicine
DX: U07.1 COVID-19 (principal); J02.9 Acute pharyngitis, unspecified; I25.10 Atherosclerotic heart disease of native coronary artery without angina pectoris; E11.9 Type 2 diabetes mellitus without complications; I10 Essential (primary) hypertension; E78.5 Hyperlipidemia, unspecified; K21.9 Gastro-esophageal reflux disease without esophagitis; Z79.899 Other long term (current) drug therapy; Z79.82 Long term (current) use of aspirin; Z95.1 Presence of aortocoronary bypass graft

== ENCOUNTER → 2022-03-21 | Outpatient (CLI) | payer MEDICARE ==
[~2022-03-21] MED LIST changes: +AMOXICILLIN500 M2 PO
[2022-03-21 10:13] LABS: CHOLESTEROL 117 mg/dL (<200); LDL CHOLESTEROL 49 mg/dL (9-159); SGOT/AST 11 IU/L (3-35); SGPT/ALT 22 U/L (12-78); TRIGLYCERIDES 175 mg/dl (<150)
== END | disposition home or self-care (01) ==
LOC: LAB 09:34
PROVIDERS: ATTEND Internal Medicine Cardiovascular Disease
DX: I11.9 Hypertensive heart disease without heart failure (principal); I25.10 Atherosclerotic heart disease of native coronary artery without angina pectoris; E78.2 Mixed hyperlipidemia

== ENCOUNTER 2022-09-16 11:11 | Emergency (ER) | payer MEDICARE ==
[~2022-09-16] VITALS: Wt 97.5 kg
[2022-09-16 12:21] LABS: BASO % 0.3 % (0.0-1.0); EOS # 0.2 10*3/uL (0.0-0.4); EOS % 3.1 % (1.0-4.0); HEMATOCRIT 40.7 % (42.0-52.0); LYMPH # 1.4 10*3/uL (1.3-4.4); LYMPH % 19.2 % (27.0-41.0); MEAN CELL VOLUME 86.8 fl (80.0-94.0); MEAN CORPUSCULAR HGB 28.6 pg (27.0-31.0); MEAN CORPUSCULAR HGB CONC 32.9 g/dl (33.0-37.0); MEAN PLATELET VOLUME 9.7 fl (9.6-12.3); MONO # 0.5 10*3/uL (0.1-1.0); MONO % 7.7 % (3.0-9.0); NEUT # 4.9 10*3/uL (2.3-7.9); NEUT % 69.4 % (47.0-73.0); PLATELET COUNT AUTOMATED 257 10*3/uL (130-400); RED BLOOD COUNT 4.69 10*6/uL (4.50-5.90); RED CELL DISTRI WIDTH 13.6 % (0-14.5)
[2022-09-16 12:37] LABS: ALKALINE PHOSPHATASE 80 U/L (46-116); BUN 20 mg/dl (9-23); CHLORIDE 105 mmol/L (98-107); INTERNATIONAL NORM RATIO 2.1 (2.0-3.5); POTASSIUM 3.8 mmol/L (3.4-5.1); SGPT/ALT 17 U/L (10-49); TOTAL PROTEIN 7.2 gm/dL (6.0-8.0)
== END 2022-09-16 17:09 | disposition home or self-care (01) ==
LOC: ED 11:11
PROVIDERS: Physician Assistant
DX: R07.89 Other chest pain (principal); I25.2 Old myocardial infarction; Z79.899 Other long term (current) drug therapy; Z79.82 Long term (current) use of aspirin

== ENCOUNTER → 2023-05-23 | Outpatient (CLI) | payer MEDICARE ==
[2023-05-23 09:57] LABS: CHOLESTEROL 113 mg/dL (<200); LDL CHOLESTEROL 50 mg/dL (9-159); SGPT/ALT 24 U/L (5-49); TRIGLYCERIDES 192 mg/dl (<150)
== END | disposition home or self-care (01) ==
LOC: LAB 08:55
PROVIDERS: ATTEND Internal Medicine Cardiovascular Disease
DX: I25.10 Atherosclerotic heart disease of native coronary artery without angina pectoris (principal); I10 Essential (primary) hypertension; E78.2 Mixed hyperlipidemia

== ENCOUNTER 2023-11-09 16:36 | Emergency (ER) | payer MEDICARE ==
[~2023-11-09] VITALS: Ht 180.3 cm; Wt 95.7 kg
[2023-11-09 16:57] LABS: BASO % 0.3 % (0.0-1.0); EOS # 0.2 10*3/uL (0.0-0.4); HEMATOCRIT 43.9 % (42.0-52.0); LYMPH # 1.9 10*3/uL (1.3-4.4); MEAN CELL VOLUME 84.6 fl (80.0-94.0); MEAN CORPUSCULAR HGB 27.7 pg (27.0-31.0); MEAN CORPUSCULAR HGB CONC 32.8 g/dl (33.0-37.0); MEAN PLATELET VOLUME 9.5 fl (9.6-12.3); MONO # 0.8 10*3/uL (0.1-1.0); MONO % 8.6 % (3.0-9.0); NEUT % 67.9 % (47.0-73.0); PLATELET COUNT AUTOMATED 291 10*3/uL (130-400); RED BLOOD COUNT 5.19 10*6/uL (4.50-5.90); RED CELL DISTRI WIDTH 13.6 % (0-14.5); WHITE BLOOD COUNT 8.8 10*3/uL (4.8-10.8)
[2023-11-09] MEDS ORDERED: METFORMIN HCL PO (17:05)
[2023-11-09] MEDS ORDERED: NORVASC5 MG PO (17:05)
[2023-11-09] MEDS ORDERED: TOPROL XL25 MG PO (17:05)
[2023-11-09] MEDS ORDERED: Clopidogrel75 MG PO (17:06)
[2023-11-09] MEDS ORDERED: JARDIANCE25 MG PO (17:07)
[2023-11-09] MEDS ORDERED: IRON325 M1 PO (17:07)
[2023-11-09] MEDS ORDERED: ROSUVASTATIN CA40 MG PO (17:07)
[2023-11-09] MEDS ORDERED: WARFARIN SODIUM4 MG PO (17:08)
[2023-11-09 17:12] LABS: POTASSIUM 4.1 mmol/L (3.4-5.1); TOTAL PROTEIN 7.7 gm/dL (6.0-8.0)
[2023-11-09] MEDS ORDERED: MAGNESIUM OXIDE 400 MG TAB PO ONE (18:40)
== END 2023-11-09 19:16 | disposition home or self-care (01) ==
LOC: ED 16:36
PROVIDERS: Internal Medicine
DX: R07.89 Other chest pain (principal); E83.42 Hypomagnesemia; E11.22 Type 2 diabetes mellitus with diabetic chronic kidney disease; E11.65 Type 2 diabetes mellitus with hyperglycemia; I12.9 Hypertensive chronic kidney disease with stage 1 through stage 4 chronic kidney disease, or unspecified chronic kidney disease; N18.32 Chronic kidney disease, stage 3b; Z79.4 Long term (current) use of insulin; E78.00 Pure hypercholesterolemia, unspecified; Z98.890 Other specified postprocedural states; Z95.5 Presence of coronary angioplasty implant and graft

== ENCOUNTER 2023-11-20 06:33 | Emergency (ER) | payer MEDICARE ==
[~2023-11-20] VITALS: Ht 162.5 cm; Wt 98.1 kg
[~2023-11-20 06:33] MED LIST changes: +Clopidogrel75 MG PO; +IRON325 M1 PO; +JARDIANCE25 MG PO; +METFORMIN HCL PO; +NORVASC5 MG PO; +ROSUVASTATIN CA40 MG PO; +TOPROL XL25 MG PO; +WARFARIN SODIUM4 MG PO
[2023-11-20 06:56] LABS: BASO % 0.2 % (0.0-1.0); EOS # 0.2 10*3/uL (0.0-0.4); HEMATOCRIT 43.9 % (42.0-52.0); LYMPH # 1.8 10*3/uL (1.3-4.4); LYMPH % 22.2 % (27.0-41.0); MEAN CELL VOLUME 85.7 fl (80.0-94.0); MEAN CORPUSCULAR HGB 28.9 pg (27.0-31.0); MEAN CORPUSCULAR HGB CONC 33.7 g/dl (33.0-37.0); MEAN PLATELET VOLUME 9.7 fl (9.6-12.3); MONO # 0.7 10*3/uL (0.1-1.0); MONO % 8.2 % (3.0-9.0); NEUT # 5.3 10*3/uL (2.3-7.9); PLATELET COUNT AUTOMATED 274 10*3/uL (130-400); RED BLOOD COUNT 5.12 10*6/uL (4.50-5.90); RED CELL DISTRI WIDTH 13.8 % (0-14.5)
[2023-11-20] MEDS ORDERED: HEPARIN SODIUM 250 ML IV SCH (07:00)
[2023-11-20 07:07] LABS: ACT PARTIAL THROMBO TIME 28.8 SECONDS (20.0-32.1)
[2023-11-20 07:21] LABS: POTASSIUM 3.9 mmol/L (3.4-5.1); TOTAL PROTEIN 7.7 gm/dL (6.0-8.0)
[2023-11-20] MEDS ORDERED: Dextrose/Nitroglycerin 250 ML IV SCH (07:35)
== END 2023-11-20 14:38 | disposition short-term general hospital (02) ==
LOC: ED 06:33
PROVIDERS: Internal Medicine
DX: I21.4 Non-ST elevation (NSTEMI) myocardial infarction (principal); R11.0 Nausea; I10 Essential (primary) hypertension; E11.9 Type 2 diabetes mellitus without complications; E78.00 Pure hypercholesterolemia, unspecified; Z98.890 Other specified postprocedural states; Z95.5 Presence of coronary angioplasty implant and graft

== ENCOUNTER 2023-12-16 22:07 | Emergency (ER) | payer MEDICARE ==
[~2023-12-16] VITALS: Ht 177.8 cm; Wt 81.6 kg
[2023-12-16 22:35] LABS: BASO % 0.2 % (0.0-1.0); EOS # 0.3 10*3/uL (0.0-0.4); EOS % 2.5 % (1.0-4.0); HEMATOCRIT 36.1 % (42.0-52.0); LYMPH # 1.7 10*3/uL (1.3-4.4); LYMPH % 15.7 % (27.0-41.0); MEAN CORPUSCULAR HGB 28.8 pg (27.0-31.0); MEAN CORPUSCULAR HGB CONC 33.5 g/dl (33.0-37.0); MONO # 0.9 10*3/uL (0.1-1.0); MONO % 8.4 % (3.0-9.0); NEUT % 72.9 % (47.0-73.0); PLATELET COUNT AUTOMATED 316 10*3/uL (130-400); RED CELL DISTRI WIDTH 14.8 % (0-14.5); WHITE BLOOD COUNT 10.9 10*3/uL (4.8-10.8)
[2023-12-16 22:53] LABS: ACT PARTIAL THROMBO TIME 44.4 SECONDS (20.0-32.1)
[2023-12-16 22:57] LABS: POTASSIUM 3.7 mmol/L (3.4-5.1); TOTAL PROTEIN 7.5 gm/dL (6.0-8.0)
[2023-12-16] MEDS ORDERED: MAGNESIUM OXIDE 400 MG TAB PO ONE (23:40)
== END 2023-12-17 01:53 | disposition home or self-care (01) ==
LOC: ED 22:07
PROVIDERS: Internal Medicine
DX: M54.9 Dorsalgia, unspecified (principal); E83.42 Hypomagnesemia; D64.9 Anemia, unspecified; N18.32 Chronic kidney disease, stage 3b; R20.0 Anesthesia of skin; I25.2 Old myocardial infarction; Z79.899 Other long term (current) drug therapy; Z79.01 Long term (current) use of anticoagulants; Z95.5 Presence of coronary angioplasty implant and graft

== ENCOUNTER 2024-06-17 21:48 | Emergency (ER) | payer MEDICARE ==
[~2024-06-17] VITALS: Ht 180.3 cm; Wt 90.7 kg
[2024-06-17 22:49] LABS: BASO % 0.3 % (0.0-1.0); EOS # 0.4 10*3/uL (0.0-0.4); EOS % 3.3 % (1.0-4.0); HEMATOCRIT 41.3 % (42.0-52.0); MEAN CELL VOLUME 82.9 fl (80.0-94.0); MEAN CORPUSCULAR HGB 26.9 pg (27.0-31.0); MEAN CORPUSCULAR HGB CONC 32.4 g/dl (33.0-37.0); MEAN PLATELET VOLUME 9.5 fl (9.6-12.3); MONO # 0.8 10*3/uL (0.1-1.0); MONO % 7.6 % (3.0-9.0); NEUT # 8.1 10*3/uL (2.3-7.9); NEUT % 73.1 % (47.0-73.0); PLATELET COUNT AUTOMATED 316 10*3/uL (130-400); RED BLOOD COUNT 4.98 10*6/uL (4.50-5.90); RED CELL DISTRI WIDTH 14.3 % (0-14.5); WHITE BLOOD COUNT 11.1 10*3/uL (4.8-10.8)
== END 2024-06-18 00:31 | disposition home or self-care (01) ==
LOC: ED 21:48
PROVIDERS: Internal Medicine
DX: Z13.6 Encounter for screening for cardiovascular disorders (principal); E11.22 Type 2 diabetes mellitus with diabetic chronic kidney disease; I12.9 Hypertensive chronic kidney disease with stage 1 through stage 4 chronic kidney disease, or unspecified chronic kidney disease; N18.9 Chronic kidney disease, unspecified; Z79.4 Long term (current) use of insulin; E78.00 Pure hypercholesterolemia, unspecified; Z98.890 Other specified postprocedural states; Z95.5 Presence of coronary angioplasty implant and graft

== ENCOUNTER 2024-11-25 21:27 | Emergency (ER) | payer MEDICARE ==
[2024-11-25 22:18] LABS: BASO % 0.2 % (0.0-1.0); EOS # 0.3 10*3/uL (0.0-0.4); EOS % 3.7 % (1.0-4.0); HEMATOCRIT 38.2 % (42.0-52.0); MEAN CELL VOLUME 82.9 fl (80.0-94.0); MEAN CORPUSCULAR HGB 26.9 pg (27.0-31.0); MEAN CORPUSCULAR HGB CONC 32.5 g/dl (33.0-37.0); MEAN PLATELET VOLUME 9.3 fl (9.6-12.3); MONO # 0.7 10*3/uL (0.1-1.0); MONO % 8.5 % (3.0-9.0); NEUT # 5.9 10*3/uL (2.3-7.9); NEUT % 68.3 % (47.0-73.0); PLATELET COUNT AUTOMATED 249 10*3/uL (130-400); RED BLOOD COUNT 4.61 10*6/uL (4.50-5.90); RED CELL DISTRI WIDTH 14.6 % (0-14.5); WHITE BLOOD COUNT 8.6 10*3/uL (4.8-10.8)
[2024-11-25 23:29] LABS: ALKALINE PHOSPHATASE 73 U/L (46-116); BUN 20 mg/dl (9-23); CHLORIDE 103 mmol/L (98-107); CPK 69 U/L (34-171); POTASSIUM 3.8 mmol/L (3.4-5.1); SGPT/ALT 15 U/L (5-49); TOTAL PROTEIN 7.4 gm/dL (6.0-8.0)
== END 2024-11-26 00:53 | disposition home or self-care (01) ==
LOC: ED 21:27
PROVIDERS: Emergency Medicine
DX: R00.2 Palpitations (principal); Z79.84 Long term (current) use of oral hypoglycemic drugs; Z79.899 Other long term (current) drug therapy; Z79.01 Long term (current) use of anticoagulants; Z95.5 Presence of coronary angioplasty implant and graft

== ENCOUNTER 2025-03-05 22:43 | Emergency (ER) | payer MEDICARE ==
[~2025-03-05] VITALS: Ht 182.8 cm; Wt 88.0 kg
[2025-03-05] MEDS ORDERED: SODIUM CHLORIDE 0.9% 1,000 ML IV ONE (23:25)
[2025-03-05 23:41] LABS: BASO # 0.0 10*3/uL (0.0-0.1); BASO % 0.2 % (0.0-1.0); EOS # 0.1 10*3/uL (0.0-0.4); EOS % 1.2 % (1.0-4.0); MEAN CELL VOLUME 82.9 fl (80.0-94.0); MEAN CORPUSCULAR HGB 27.8 pg (27.0-31.0); MEAN PLATELET VOLUME 9.3 fl (9.6-12.3); MONO # 0.8 10*3/uL (0.1-1.0); MONO % 9.3 % (3.0-9.0); NEUT # 6.3 10*3/uL (2.3-7.9); NEUT % 71.2 % (47.0-73.0); NUCLEATED RED BLOOD CELL 0.0 % (0.0-0.0); NUCLEATED RED BLOOD CELL 0.0 10*3/uL (0.0-0.0); PLATELET COUNT AUTOMATED 324 10*3/uL (130-400); RED CELL DISTRI WIDTH 13.7 % (0-14.5)
[2025-03-06] LABS: BUN 24.0 mg/dl (9-23)
[2025-03-06] MEDS ORDERED: ANTIVERT25 M2 PO (01:57)
== END 2025-03-06 02:29 | disposition home or self-care (01) ==
LOC: ED 22:43
PROVIDERS: Internal Medicine
DX: E86.0 Dehydration (principal); G51.0 Bell's palsy; R11.2 Nausea with vomiting, unspecified; Z79.84 Long term (current) use of oral hypoglycemic drugs; Z79.01 Long term (current) use of anticoagulants; Z79.899 Other long term (current) drug therapy; Z95.5 Presence of coronary angioplasty implant and graft

== ENCOUNTER 2025-03-25 19:12 | Emergency (ER) | payer MEDICARE ==
[~2025-03-25] VITALS: Ht 180.3 cm; Wt 84.4 kg
[~2025-03-25 19:12] MED LIST changes: +ANTIVERT25 M2 PO
[2025-03-25] MEDS ORDERED: SODIUM CHLORIDE 0.9% 1,000 ML IV ONE (20:10)
[2025-03-25] MEDS ORDERED: Ondansetron Hydrochloride 4 MG/2 ML VIAL IV ONE (20:10)
[2025-03-25 20:25] LABS: BASO # 0.0 10*3/uL (0.0-0.1); BASO % 0.1 % (0.0-1.0); EOS # 0.0 10*3/uL (0.0-0.4); EOS % 0.2 % (1.0-4.0); MEAN CELL VOLUME 81.7 fl (80.0-94.0); MEAN CORPUSCULAR HGB 27.9 pg (27.0-31.0); MEAN PLATELET VOLUME 9.0 fl (9.6-12.3); MONO # 0.6 10*3/uL (0.1-1.0); MONO % 5.6 % (3.0-9.0); NEUT # 9.4 10*3/uL (2.3-7.9); NEUT % 86.4 % (47.0-73.0); NUCLEATED RED BLOOD CELL 0.0 % (0.0-0.0); NUCLEATED RED BLOOD CELL 0.0 10*3/uL (0.0-0.0); PLATELET COUNT AUTOMATED 311 10*3/uL (130-400); RED CELL DISTRI WIDTH 13.6 % (0-14.5)
[2025-03-25 20:44] LABS: BUN 26.0 mg/dl (9-23)
[2025-03-25 22:09] LABS: CPK 52.0 U/L (34-171); MYOGLOBIN 139.0 ng/ml (16-116)
[2025-03-25 23:56] LABS: BILIRUBIN Negative (Negative); BLOOD 2+ (Negative); CLARITY Clear (Clear); COLOR Yellow (Yellow); KETONE 3+ (Negative); LEUKO ESTERASE Negative (Negative); NITRITE Negative (Negative); PH 5.0 (4.5-8.0); SPECIFIC GRAVITY 1.020 (1.001-1.030); UROBILINOGEN 1.0 E.U./dl (0.0-1.0)
[2025-03-26 00:05] LABS: BACTERIA 1+; RBC 21-30 rbc/hpf (0-2)
[2025-03-26 00:14] LABS: ACT PARTIAL THROMBO TIME 79.7 SECONDS (20.0-32.1)
== END 2025-03-26 01:15 | disposition short-term general hospital (02) ==
LOC: ED 19:12
PROVIDERS: Emergency Medicine
DX: G93.89 Other specified disorders of brain (principal); N17.0 Acute kidney failure with tubular necrosis; E11.649 Type 2 diabetes mellitus with hypoglycemia without coma; N39.0 Urinary tract infection, site not specified; I25.10 Atherosclerotic heart disease of native coronary artery without angina pectoris; K21.9 Gastro-esophageal reflux disease without esophagitis; I25.2 Old myocardial infarction; E11.22 Type 2 diabetes mellitus with diabetic chronic kidney disease; I12.9 Hypertensive chronic kidney disease with stage 1 through stage 4 chronic kidney disease, or unspecified chronic kidney disease; N18.31 Chronic kidney disease, stage 3a; Z79.899 Other long term (current) drug therapy; Z79.84 Long term (current) use of oral hypoglycemic drugs; Z79.01 Long term (current) use of anticoagulants; Z95.5 Presence of coronary angioplasty implant and graft

== ENCOUNTER 2025-06-27 17:48 | Emergency (ER) | payer MEDICARE ==
[~2025-06-27] VITALS: Wt 83.9 kg
[2025-06-27] MEDS ORDERED: Ondansetron Hydrochloride 4 MG/2 ML VIAL IV ONE (18:35)
[2025-06-27] MEDS ORDERED: SODIUM CHLORIDE 0.9% 1,000 ML IV ONE ×2 (18:35→19:13)
[2025-06-27 19:01] LABS: BASO # 0.0 10*3/uL (0.0-0.1); BASO % 0.2 % (0.0-1.0); EOS # 0.1 10*3/uL (0.0-0.4); EOS % 0.4 % (1.0-4.0); MEAN CELL VOLUME 88.2 fl (80.0-94.0); MEAN CORPUSCULAR HGB 28.7 pg (27.0-31.0); MEAN PLATELET VOLUME 10.2 fl (9.6-12.3); MONO # 0.5 10*3/uL (0.1-1.0); MONO % 4.7 % (3.0-9.0); NEUT # 9.7 10*3/uL (2.3-7.9); NEUT % 86.4 % (47.0-73.0); NUCLEATED RED BLOOD CELL 0.0 % (0.0-0.0); NUCLEATED RED BLOOD CELL 0.0 10*3/uL (0.0-0.0); PLATELET COUNT AUTOMATED 265 10*3/uL (130-400); RED CELL DISTRI WIDTH 13.1 % (0-14.5)
[2025-06-27 19:17] LABS: BUN 12 mg/dl (9-23); SGPT/ALT 14 U/L (5-49)
[2025-06-27] MEDS ORDERED: SODIUM CHLORIDE 0.9% 100 ML BAG IV ONE (20:15)
[2025-06-27] MEDS ORDERED: IOHEXOL 350 MG/ML 100 ML VIAL IV ONE (20:15)
== END 2025-06-28 00:41 | disposition short-term general hospital (02) ==
LOC: ED 17:48
PROVIDERS: Nurse Practitioner Family
DX: I61.9 Nontraumatic intracerebral hemorrhage, unspecified (principal); E11.65 Type 2 diabetes mellitus with hyperglycemia; E11.22 Type 2 diabetes mellitus with diabetic chronic kidney disease; I12.9 Hypertensive chronic kidney disease with stage 1 through stage 4 chronic kidney disease, or unspecified chronic kidney disease; N18.31 Chronic kidney disease, stage 3a; R42 Dizziness and giddiness; E78.5 Hyperlipidemia, unspecified; I25.2 Old myocardial infarction; I25.10 Atherosclerotic heart disease of native coronary artery without angina pectoris; K21.9 Gastro-esophageal reflux disease without esophagitis; Z87.442 Personal history of urinary calculi; Z88.8 Allergy status to other drugs, medicaments and biological substances; Z79.84 Long term (current) use of oral hypoglycemic drugs; Z79.899 Other long term (current) drug therapy; Z79.01 Long term (current) use of anticoagulants